=== PATIENT | female | born 1990 | race African-American/Black ===

== ENCOUNTER 2020-05-16 12:22 | Emergency (ER) | payer MEDICAID ==
[~2020-05-16] VITALS: Ht 160 cm; Wt 86.0 kg
[2020-05-16 12:45] VITALS: BP 125/66
[2020-05-16] MEDS ORDERED: HYDROCODONE/ACETAMINOPHEN 5/325MG TABLET PO ONE (12:45)
[2020-05-16 13:07] LABS: CHLORIDE 109 mEq/L (98-107)
[2020-05-16 13:08] LABS: BASOPHILS % 0.6 % (0.0-2.0); EOSINOPHILS % 0.6 % (0.0-5.0); HEMATOCRIT. 38.8 % (36.0-48.0); HEMOGLOBIN. 12.8 g/dL (12.0-16.0); LYMPHOCYTES % 16.1 % (20.0-50.0); MEAN CORPUSCULAR HEMOGLOBIN 25.5 pg (28.0-32.0); MEAN CORPUSCULAR VOLUME 77.2 fL (81.0-99.0); MEAN PLATELET VOLUME 10.4 fl (7.4-10.4); MONOCYTES % 3.2 % (2.0-8.0); NEUTROPHILS % 79.5 % (40.0-76.0); PLATELET 167 x1000/uL (130-400); RED BLOOD CELL COUNT 5.02 mill/uL (4.2-5.4); RED CELL DISTRIBUTION WIDTH 12.9 % (11.6-14.6)
[2020-05-16 13:13] LABS: CLARITY URINE CLEAR (CLEAR); COLOR URINE YELLOW (YELLOW); KETONES URINE NEGATIVE (NEGATIVE); LEUKOCYTE ESTERASE URINE TRACE (NEGATIVE); NITRITE URINE NEGATIVE (NEGATIVE); OCCULT BLOOD URINE 3+ (NEGATIVE); PH URINE 5.5 (4.5-8.0); PROTEIN URINE NEGATIVE (NEGATIVE); SPECIFIC GRAVITY URINE 1.011 (1.005-1.030); UROBILINOGEN URINE 0.2 E.U./dL (0.2-1.0)
[2020-05-16 13:18] LABS: PROTHROMBIN TIME 10.6 sec (9.6-11.0)
[2020-05-16 13:30] LABS: B-HCG QUANTITATIVE 6665 mIU/mL (<3)
[2020-05-16] MEDS ORDERED: NITR-87 MT (14:40)
== END 2020-05-16 14:56 | disposition home or self-care (01) ==
LOC: ER 12:22
DX: O26.899 Other specified pregnancy related conditions, unspecified trimester (principal); Z88.8 Allergy status to other drugs, medicaments and biological substances
CPT/HCPCS: 36415; 76801; 80053; 81003; 81025; 84702; 85025; 86850; 86900; 93005; 99285

== ENCOUNTER 2020-05-18 09:19 | Emergency (ER) | payer MEDICAID ==
[~2020-05-18] VITALS: Ht 165.1 cm; Wt 75.0 kg
[~2020-05-18 09:19] MED LIST: NITR-87 MT
[2020-05-18 09:28] VITALS: BP 133/89
[2020-05-18] MEDS ORDERED: ACETAMINOPHEN 325MG TABLET PO ONE (09:45)
== END 2020-05-18 11:12 | disposition home or self-care (01) ==
LOC: ER 09:19
DX: O03.9 Complete or unspecified spontaneous abortion without complication (principal); Z88.8 Allergy status to other drugs, medicaments and biological substances
CPT/HCPCS: 36415; 84702; 99283

== ENCOUNTER 2022-03-25 09:39 | Emergency (ER) | payer OTHER ==
[~2022-03-25] VITALS: Ht 167.6 cm; Wt 73.0 kg
[2022-03-25 09:46] VITALS: BP 123/85
== END 2022-03-25 16:21 | disposition left against medical advice (07) ==
LOC: ER 10:11
DX: Z53.21 Procedure and treatment not carried out due to patient leaving prior to being seen by health care provider (principal); I49.9 Cardiac arrhythmia, unspecified
CPT/HCPCS: 93005